=== PATIENT | male | born 1945 | race Caucasian/White ===

== ENCOUNTER 2019-02-04 12:23 | Observation (INO) | payer MEDICARE, OTHER ==
[~2019-02-04] VITALS: Ht 172.7 cm; Wt 73.5 kg
--- NOTE | 2019-02-04 12:35 | NUR ---
TO ROOM FROM LOBBY. NAD.
--- NOTE | 2019-02-04 13:29 | NUR ---
LATE NOTE ENTRY FOR 1252: Pt ambulates to room from lobby with steady gait and balance. NADN. No obvious defecits observed. Pt provided gown and sheet. Pt c/o right sided constant and dull chest pain that started on Tuesday. Pt states, "I am concerned it may be cancer. 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 Bedrail up X 1 for safety measures. Call light within reach. Pt denies n/v/d, syncope, or trauma.
[2019-02-04] MEDS ORDERED: MORPHINE SULFATE 4 MG/ML, 1ML IVPush PRN (13:30)
[2019-02-04] MEDS ORDERED: ASPIRIN 81 MG TABLET CHEW PO ONE (13:30)
[2019-02-04 13:33] LABS: BASOPHILS # (AUTO) 0.01 x10^3/uL (0-0.1); BASOPHILS % (AUTO) 0 % (0-1); EOSINOPHILS # (AUTO) 0.01 x10^3/uL (0-0.4); EOSINOPHILS % (AUTO) 0 % (1-7); LYMPHOCYTES # (AUTO) 0.96 x10^3/uL (1-3.4); LYMPHOCYTES % (AUTO) 8 % (22-44); MD NO; MEAN CORPUSCULAR HEMOGLOBIN 31.4 pg (27.5-34.5); MEAN CORPUSCULAR HGB CONC 33.8 g/dL (33.2-36.2); MEAN CORPUSCULAR VOLUME 92.9 fL (81-97); MEAN PLATELET VOLUME 8.6 fL (7.4-10.4); MONOCYTES # (AUTO) 0.58 x10^3/uL (0.2-0.8); MONOCYTES % (AUTO) 5 % (2-9); NEUTROPHILS # (AUTO) 10.12 x10^3/uL (1.8-6.8); NEUTROPHILS % (AUTO) 87 % (42-75); PLATELET COUNT 210 x10^3/uL (130-400); RED BLOOD COUNT 5.74 x10^6/uL (4.38-5.82)
--- NOTE | 2019-02-04 13:34 | NUR ---
PT C/O R CP UNDERNEATH THE RIBS, R SIDE 5/10 AND DULL IN DISCRIPTION. PT STATES THIS STARTED YESTERDAY AFTERNOON. PT DENIES SOB, TRAUMA, N/V/D. ERMD IN TO EVAL PT. PT ON CONT PULSE OX, CARD MONITOR, NIBP. AT BEDSIDE, NO FURTHER NEEDS AT THIS TIME
[2019-02-04 13:42] LABS: INTERNATIONAL NORMALIZED RATIO 1.08 (0.93-1.1); PROTHROMBIN TIME 11.3 Seconds (9.6-11.5)
[2019-02-04 13:45] LABS: ALANINE AMINOTRANSFERASE 22 U/L (12-78); ALBUMIN 4.3 g/dL (3.4-5.0); ANION GAP 7 mmol/L (5-15); CALCIUM 8.7 mg/dL (8.5-10.1); CHLORIDE 106 mmol/L (98-107)
[2019-02-04 13:50] LABS: ALKALINE PHOSPHATASE 58 U/L (45-117); BILIRUBIN,TOTAL 2.1 mg/dL (0.2-1.0); CREATININE 1.44 mg/dL (0.7-1.3); TOTAL PROTEIN 7.6 g/dL (6.4-8.2); TROPONIN I < 0.015 ng/mL (0.000-0.045)
--- NOTE | 2019-02-04 14:28 | NUR ---
PIV STARTED, ERMD IN TO UPDATE PT, PIV STARTED
[2019-02-04] MEDS ORDERED: LIOT5TAB3 PO (14:36)
[2019-02-04] MEDS ORDERED: ESCI20TA10 PO (14:36)
[2019-02-04] MEDS ORDERED: LEVO75TA PO (14:36)
[2019-02-04] MEDS ORDERED: ALEN70TA6 PO (14:36)
[2019-02-04] MEDS ORDERED: ONDANSETRON ODT 4 MG PO PRN (17:00)
[2019-02-04] MEDS ORDERED: morphine SULFATE 10 MG/ML, 1ML IVPush PRN (17:00)
[2019-02-04] MEDS ORDERED: LIDODERM 5% PATCH TD SCH (17:00)
[2019-02-04] MEDS ORDERED: ONDANSETRON 2MG/ML, 2ML IVPush PRN (17:00)
[2019-02-04] MEDS ORDERED: LABETALOL 5MG/ML, 20ML IVPush PRN (17:00)
[2019-02-04] MEDS ORDERED: ENOXAPARIN 40 MG/0.4 ML SQ SCH (17:30)
[2019-02-04] MEDS ORDERED: ASPIRIN 81 MG TABLET CHEW ONE (17:33)
[2019-02-04 18:25] LABS: FREE T4 (FREE THYROXINE) 1.15 ng/dL (0.76-1.46)
[2019-02-04 19:56] VITALS: BP 169/85
[2019-02-04] MEDS: LIOTHYRONINE 5 MCG TABLET PO SCH (20:22)
[2019-02-05 00:59] VITALS: BP 168/99
[2019-02-05 05:53] LABS: BASOPHILS # (AUTO) 0.03 x10^3/uL (0-0.1); BASOPHILS % (AUTO) 0 % (0-1); EOSINOPHILS # (AUTO) 0.01 x10^3/uL (0-0.4); EOSINOPHILS % (AUTO) 0 % (1-7); LYMPHOCYTES # (AUTO) 1.32 x10^3/uL (1-3.4); LYMPHOCYTES % (AUTO) 11 % (22-44); MD NO; MEAN CORPUSCULAR HGB CONC 33.6 g/dL (33.2-36.2); MEAN CORPUSCULAR VOLUME 95.2 fL (81-97); MEAN PLATELET VOLUME 9.6 fL (7.4-10.4); MONOCYTES # (AUTO) 0.97 x10^3/uL (0.2-0.8); MONOCYTES % (AUTO) 8 % (2-9); NEUTROPHILS # (AUTO) 10.31 x10^3/uL (1.8-6.8); NEUTROPHILS % (AUTO) 82 % (42-75); PLATELET COUNT 225 x10^3/uL (130-400); RED BLOOD COUNT 5.66 x10^6/uL (4.38-5.82); RED CELL DISTRIBUTION WIDTH 12.8 % (9.4-14.8)
[2019-02-05] MEDS ORDERED: LEVOTHYROXINE 75 MCG TABLET PO SCH (06:00)
[2019-02-05 06:09] LABS: ALBUMIN 4.1 g/dL (3.4-5.0); ANION GAP 10 mmol/L (5-15); CALCIUM 8.2 mg/dL (8.5-10.1); CHLORIDE 106 mmol/L (98-107)
[2019-02-05 06:20] LABS: ALANINE AMINOTRANSFERASE 21 U/L (12-78); ALKALINE PHOSPHATASE 57 U/L (45-117); BILIRUBIN,TOTAL 2.5 mg/dL (0.2-1.0); CREATININE 1.17 mg/dL (0.7-1.3); TOTAL PROTEIN 7.7 g/dL (6.4-8.2)
[2019-02-05] MEDS: LIOTHYRONINE 5 MCG TABLET PO SCH (08:44)
[2019-02-05 08:53] VITALS: BP 162/92
[2019-02-05] MEDS ORDERED: ESCITALOPRAM 10MG TABLET PO SCH (09:00)
[2019-02-05 12:55] LABS: TROPONIN I < 0.015 ng/mL (0.000-0.045)
[2019-02-05] MEDS ORDERED: AMLO2.5T5 PO (14:28)
[2019-02-05 14:33] VITALS: BP 124/85
== END 2019-02-05 16:10 | disposition home or self-care (01) ==
LOC: ED 14:11 → INTOOBSV 14:52 → 5SO 14:52 → DCLOUNGE 02-05 16:00
PROVIDERS: ADMIT Internal Medicine; ATTEND Internal Medicine
DX: R07.89 Other chest pain (principal); E03.9 Hypothyroidism, unspecified; N40.0 Benign prostatic hyperplasia without lower urinary tract symptoms; M81.0 Age-related osteoporosis without current pathological fracture; I12.9 Hypertensive chronic kidney disease with stage 1 through stage 4 chronic kidney disease, or unspecified chronic kidney disease; N18.3 Chronic kidney disease, stage 3 (moderate); D72.829 Elevated white blood cell count, unspecified; N13.30 Unspecified hydronephrosis; D75.1 Secondary polycythemia; Z66 Do not resuscitate; Z90.5 Acquired absence of kidney; Z85.51 Personal history of malignant neoplasm of bladder; Z85.850 Personal history of malignant neoplasm of thyroid; Z87.891 Personal history of nicotine dependence; Z96.641 Presence of right artificial hip joint; Z79.899 Other long term (current) drug therapy
CPT/HCPCS: 36415; 71045; 76700; 80053; 83735; 83880; 84100; 84439; 84443; 84484; 85025; 85379; 85610; 93005; 93017; 96372; 99284; G0378; J1650

== ENCOUNTER 2019-05-16 12:33 | Outpatient (CLI) | payer MEDICARE, OTHER ==
[~2019-05-16 12:33] MED LIST: ALEN70TA6 PO; AMLO2.5T5 PO; ESCI20TA10 PO; LEVO75TA PO; LIOT5TAB11 PO
== END 2019-05-16 23:59 | disposition home or self-care (01) ==
LOC: RAD 12:33
PROVIDERS: ATTEND Urology
DX: N13.30 Unspecified hydronephrosis (principal); Z93.2 Ileostomy status; Z90.5 Acquired absence of kidney
CPT/HCPCS: 74425; Q9958

== ENCOUNTER → 2019-06-08 | Outpatient (CLI) | payer MEDICARE, OTHER ==
[~2019-06-08] MED LIST changes: +FUROSEMIDE 20 MG/2 ML ONE
== END | disposition home or self-care (01) ==
LOC: RAD 08:58
PROVIDERS: ATTEND Urology
DX: N13.30 Unspecified hydronephrosis (principal); Z87.891 Personal history of nicotine dependence; F10.20 Alcohol dependence, uncomplicated
CPT/HCPCS: 78708; A9562; J1940

== ENCOUNTER 2019-07-06 15:01 | Outpatient (CLI) | payer MEDICARE, OTHER ==
[~2019-07-06 15:01] MED LIST changes: -FUROSEMIDE 20 MG/2 ML ONE
[2019-07-06 15:29] LABS: ANION GAP 8 mmol/L (5-15); CALCIUM 8.9 mg/dL (8.5-10.1); CHLORIDE 107 mmol/L (98-107); CREATININE 1.37 mg/dL (0.7-1.3)
== END 2019-07-06 23:59 | disposition home or self-care (01) ==
LOC: LAB 15:01
PROVIDERS: ATTEND Urology
DX: Z85.51 Personal history of malignant neoplasm of bladder (principal)
CPT/HCPCS: 36415; 80048; 84153

== ENCOUNTER → 2021-01-28 | Outpatient (CLI) | payer MEDICARE, OTHER ==
[~2021-01-28] MED LIST changes: -ALEN70TA6 PO; +ALEN70TA77 PO
== END | disposition home or self-care (01) ==
LOC: CFH 11:07
PROVIDERS: ATTEND Family Medicine
DX: M81.0 Age-related osteoporosis without current pathological fracture (principal)
CPT/HCPCS: 77080